=== PATIENT | female | born 1960 | race Hispanic/Latino ===

== ENCOUNTER 2019-05-29 23:47 | Emergency (ER) | payer SELFPAY ==
[2019-05-30 00:32] LABS: #Eosinphils 1.3 thou/uL (0.0-0.7); #Monocytes 0.9 thou/uL (0.11-0.59); #Neutrophils 4.4 thou/uL (1.40-6.50); %Basophils 0.5 % (0.0-1.0); %Eosinophils 14.8 % (0.0-10.0); %Lymphocytes 23.8 % (21.0-51.0); %Monocytes 9.9 % (0.0-10.0); Hemoglobin 14.7 g/dL (12.0-16.0); Mean Corpuscular HGB CONC 33.6 g/dL (32.0-36.0); Mean Corpuscular Hemoglobin 28.9 pg (27.0-31.0); Mean Corpuscular Volume 85.9 fL (78.0-98.0); Mean Platelet Volume 6.9 fL (7.4-10.4); Platelet Count 384 thou/uL (130-400); RBC Distribution Width 13.2 % (11.5-14.5); Red Blood Cell (RBC) Count 5.08 mill/uL (4.20-5.40); White Blood Cell (WBC) Count 8.6 thou/uL (4.8-10.8)
[2019-05-30 00:40] LABS: Bilirubin Negative (Negative); Blood, Urine Negative (Negative); Clarity Clear (Clear); Glucose, Urine (Dipstick) Normal (Negative); Leukocyte 500 Leu/uL (Negative); Nitrite Negative (Negative); Protein, Urine (Dipstick) Negative (Neg-Trace); RBC/HPF 0-3 HPF (0-3); Squamous Epithelial 0-3 HPF (0-3); Urobilinogen Normal mg/dL (Less than 2); WBC/HPF 21-50 HPF (0-3)
[2019-05-30 00:47] LABS: Transitional Epithelial 0-3 HPF (None Seen)
[2019-05-30 00:48] LABS: Bacteria/HPF 1+ HPF (None Seen)
[2019-05-30 00:49] LABS: Pregnancy Test - Urine (BHCG) Negative (Negative); Pregu Control Background? CLEAR/WHITE (CLR/WHITE); Pregu Control Bar Appear? YES (CONTROL BAR); Specific Gravity 1.002 (1.002-1.036)
[2019-05-30 00:53] LABS: ALT (SGPT) 21 U/L (8-55); AST (SGOT) 21 U/L (5-34); Albumin 4.3 g/dL (3.5-5.0); Alkaline Phosphatase 95 U/L (40-150); Anion Gap 13 mmol/L (10-20); BUN (Urea Nitrogen) 7 mg/dL (9.8-20.1); Bilirubin, Total 0.3 mg/dL (0.2-1.2); Calc. Creatinine Clearance 0 mL/min (70-130); Calcium 9.6 mg/dL (7.8-10.44); Carbon Dioxide 26 mmol/L (22-29); Chloride 101 mmol/L (98-107); Estimated GFR-MDRD 66; Globulin 2.9 g/dL (2.4-3.5); Glucose 89 mg/dL (70-105); Lipase 21 U/L (8-78); Potassium 3.6 mmol/L (3.5-5.1); Protein, Total 7.2 g/dL (6.0-8.3); Sodium 136 mmol/L (136-145)
[2019-05-30] MEDS ORDERED: Ketorolac Tromethamine 30 MG/ML VIAL ONE (01:03)
--- NOTE | 2019-05-30 08:49 | ULT ---
PRELIMINARY REPORT/[facility]/EMERGENCY AFTER HOURS PROCEDURE: EXAM: US Abdomen Limited, Right Upper Quadrant EXAM DATE/TIME: 05/30/2019 2:00 AM CLINICAL HISTORY: 58 years old, female; Other: Upper abd pain TECHNIQUE: Imaging protocol: Real-time ultrasound of the abdomen with image documentation. Examination was focus ed on the right upper quadrant. COMPARISON: No relevant prior studies available. FINDINGS: Liver: 1.4 cm hyperechoic focus in the right popliteal liver is indeterminate, potentially a hemangio ma. Gallbladder: Gallbladder is distended but otherwise unremarkable with no wall thickening or perichole cystic fluid. Sonographic Mosqueda's sign negative. Common bile duct: Normal. No stones. No dilation. Pancreas: Visualized pancreas is unremarkable. Right kidney: Normal. No mass. No hydronephrosis. IMPRESSION: 1.4 cm hyperechoic focus in the right popliteal liver is indeterminate, potentially a hemangioma. Thank you for allowing us to participate in the care of your patient. Dictated and Authenticated by: Cole Mane MD 05/30/2019 2:32 AM Central Time ([place] & [place]) FINAL REPORT EMERGENCY AFTER HOURS RIGHT UPPER QUADRANT ULTRASOUND: Date: 05/30/19 Time: 0204 hours FINDINGS/IMPRESSION: 1.4 cm diameter hyperechoic focus in the liver, potentially hemangioma. No evidence of gallstones. No common duct dilatation. Report in agreement with preliminary report given on-call by Frank. POS: MÓNICA
== END 2019-05-30 03:07 | disposition home or self-care (01) ==
LOC: ERS 23:47
DX: R10.11 Right upper quadrant pain (principal); J45.909 Unspecified asthma, uncomplicated; E03.9 Hypothyroidism, unspecified; Z79.899 Other long term (current) drug therapy
CPT/HCPCS: 36415; 76705; 80053; 81003; 81015; 81025; 83690; 85025; 96372; J1885

== ENCOUNTER 2020-03-11 14:35 | Observation (INO) | payer SELFPAY ==
--- NOTE | 2020-03-11 14:58 | CT ---
Exam: Head CT without contrast HISTORY: Right-sided weakness. Altered mental status. Headache. Last seen normal one hour ago. COMPARISON: none FINDINGS: Hemorrhage: No intraparenchymal hemorrhage or extra-axial hematoma. Brain parenchyma: Cortical abdul-white matter differentiation is preserved. No mass effect or midline shift. Basilar cisterns are patent. Ventricular system: Ventricles and sulci are patent and symmetric. Calvarium: Intact. Sinuses and mastoid air cells: Mild mucosal thickening of the ethmoid air cells and lateral maxillary sinuses. IMPRESSION: 1. No acute intracranial process 2. Results of study discussed with Dr. Galicia 03/11/2020 2:55 PM Code CR
[2020-03-11 15:08] LABS: #Basophils 0.1 thou/uL (0.0-0.2); #Eosinphils 0.7 thou/uL (0.0-0.7); #Lymphocytes 1.9 thou/uL (1.20-3.40); #Monocytes 0.6 thou/uL (0.11-0.59); #Neutrophils 3.6 thou/uL (1.40-6.50); %Basophils 1.5 % (0.0-1.0); %Eosinophils 10.5 % (0.0-10.0); %Lymphocytes 26.9 % (21.0-51.0); %Monocytes 8.3 % (0.0-10.0); %Neutrophils 52.8 % (42.0-75.0); Hemoglobin 13.6 g/dL (12.0-16.0); Mean Corpuscular HGB CONC 34.8 g/dL (32.0-36.0); Mean Corpuscular Hemoglobin 30.3 pg (27.0-31.0); Mean Platelet Volume 8.2 fL (7.4-10.4); Platelet Count 323 thou/uL (130-400); RBC Distribution Width 13.1 % (11.5-14.5); White Blood Cell (WBC) Count 6.9 thou/uL (4.8-10.8)
[2020-03-11 15:12] LABS: PTT 32.1 sec (22.9-36.1); Prothrombin Time 13.3 sec (12.0-14.7)
[2020-03-11 15:21] LABS: ALT (SGPT) 20 U/L (8-55); AST (SGOT) 26 U/L (5-34); Albumin 4.2 g/dL (3.5-5.0); Alkaline Phosphatase 80 U/L (40-110); Anion Gap 12 mmol/L (10-20); BUN (Urea Nitrogen) 10 mg/dL (9.8-20.1); Bilirubin, Total 0.4 mg/dL (0.2-1.2); CK (CPK) 87 U/L (29-168); Calc. Creatinine Clearance 0 mL/min (70-130); Calcium 9.5 mg/dL (7.8-10.44); Carbon Dioxide 26 mmol/L (22-29); Chloride 105 mmol/L (98-107); Estimated GFR-MDRD 55; Globulin 3.2 g/dL (2.4-3.5); Glucose 124 mg/dL (70-105); Potassium 3.8 mmol/L (3.5-5.1); Protein, Total 7.4 g/dL (6.0-8.3); Sodium 139 mmol/L (136-145)
--- NOTE | 2020-03-11 15:22 | CT ---
EXAM: CT ANGIOGRAM OF THE HEAD AND NECK INDICATION: Stroke COMPARISON: None TECHNIQUE: CT angiogram of the head and neck are performed in the axial plane. Three-dimensional refo rmatted images are submitted for interpretation. FINDINGS: CTA OF THE HEAD WITH AND WITHOUT CONTRAST: POSTCONTRAST CT OF BRAIN: Pathologic enhancement: No pathologic enhancement the brain. Postcontrast soft tissue neck CT: Sinuses: Mild mucosal thickening of the paranasal sinuses Aerodigestive tract: Patent. No mucosal abnormality. Limited evaluation of the oral cavity due to den valery amalgam artifact. Midline fatty raphae of the tongue does appear to be preserved. Orbits: Bilateral ocular lenses are appropriately located. Both globes are intact. Retrobulbar fat is preserved. Symmetric attenuation the optic nerves and ocular rectus muscles. Salivary glands:Symmetric attenuation of the parotid and submandibular glands Thyroid gland: Appropriate attenuation Lymph nodes: No evidence of lymphadenopathy by size criteria. Paraspinal muscles: Symmetric attenuation of the sternocleidomastoid muscles. Appropriate attenuation of the paraspinal muscles. Cervical spine:Vertebral body height is maintained. No fracture. No significant central canal stenosi s or significant neural foraminal narrowing. Limited evaluation by technique. Upper mediastinum and lung apices: Chronic changes. No acute abnormality. CTA OF THE NECK WITH CONTRAST: Aorta: Appropriate enhancement and luminal diameter Right carotid artery: Common origin (compatible with a bovine arch). Appropriate enhancement and agustín nal diameter. No significant stenosis based upon NASCET criteria. Left carotid: Appropriate enhancement and luminal diameter. No significant stenosis based upon NASCET criteria Subclavian arteries:Appropriate enhancement and luminal diameter Vertebral arteries:Appropriate enhancement and luminal diameter. Right vertebral artery is dominant. CTA OF THE BRAIN: Intracranial internal carotid arteries:Appropriate enhancement and luminal diameter Anterior circulation: Appropriate enhancement and luminal diameter of the A1 segments, proximal A2 se gments, M1 segments and proximal MCA branches. Intracranial vertebral arteries: Appropriate enhancement and luminal diameter. Bilateral PICA artery origins have appropriate enhancement and luminal diameter Posterior circulation: Appropriate enhancement and luminal diameter the basilar artery and bilateral P1 segments IMPRESSION: 1. No hemodynamically significant stenosis, occlusion or aneurysmal formation. 2. Results study discussed with Dr. Galicia 03/11/2020 3:21 PM Code CR Transcribed Date/Time: 03/11/2020 4:46 PM
--- NOTE | 2020-03-11 16:59 | PDOC.FPRHP ---
- History of Present Illness Chief Complaint: AMS, Right sided weakness History of Present Illness: Patient is a 59 yo english speaking F with PMH of asthma, GERD, hypothyroidism who presents for headache, AMS, difficulty with speech, and right sided weakness that started this morning. present, states her symptoms started at 2 PM. Says she became suddenly weak and he had to help her to the ground, had state of confusion for about 10 minutes with minimal responsiveness (was saying some words) and he decided to call 911. When paramedics arrived she was still confused for about 30 minutes. ED physician reported that upon arrival the patient had weakness in her right arm and leg. Patient does not remember this episode and her symptoms have resolved at the time of my evaluation. Patient denies any weakness and is appropriately answering questions. Patient reports constant right eye pain for past 12 days and muscle pain in posterior neck near left base of neck which started 4 days ago. Patient was seen at [facility] on March 08, had head CT completed there and was sent home with medications for migraine, including Fiorecet & Flexeril. Also given Keflex for eye infection. Says Fiorecet did not help. *H&P was obtained with assistance of iPad video architect marine ED Course: In ED: CT head negative, CTA head and neck wnl. Patient was given 325 mg ASA. - Allergies/Adverse Reactions Allergies Allergy/AdvReac Type Severity Reaction Status Date / Time shellfish derived Allergy Rash Verified 03/11/20 20:48 - Home Medications Comments: Home medications: Breo Ellipta 100-25 mcg/inh 1 puff daily' omeprazole 40 mg qd Albuterol q4h PRN neb levothyroxine 75 mcg qd Duoneb nebulizer 4-6 hr - History PMHx: hypothyroidism, asthma, gastric ulcer PSHx: left ovary removed, CSx1 FHx: sister had breast cancer @ age 70 yrs Social: denied tobacco, alcohol, or drug use Denies allergies - Review of Systems General: denies: fever/chills, weight/appetite/sleep changes, fatigue Eyes: reports: eye pain. denies: vision changes ENT: denies: nasal congestion Respiratory: denies: cough, congestion, shortness of breath Cardiovascular: denies: chest pain, palpitation, edema Gastrointestinal: denies: nausea, vomiting, diarrhea, abdominal pain Skin: denies: rashes, lesions, jaundice, itching Musculoskeletal: denies: pain, tenderness, swelling Neurological: reports: weakness. denies: numbness, syncope, seizure - Vital signs 148/94 Resp: 14 O2 sat: 99 on Room Air Pulse: 73 Temp: 98.3 Pain: 5 - Physical Exam Constitutional: NAD, awake, alert and oriented, well developed HEENT: normocephalic and atraumatic, PERRLA, EOMI, conjunctiva clear, grossly normal vision, MMM Neck: supple, FROM, trachea midline, no JVD, no thyromegaly Chest: no-tender to palpation, no lesions Heart: RRR, normal S1/S2, no murmurs/rubs/gallops, pulses present, no edema Lungs: CTAB, no respiratory distress, good air movement, no wheezing Abdomen: soft, non-tender, bowel sounds present Musculoskeletal: normal structure, normal tone, ROM grossly normal Neurological: no focal deficit, CN II-XII intact, normal sensation -Neurological: able to perform heel to simon test bilaterally Skin: no rash/lesions, good turgor, no jaundice Heme/Lymphatic: no unusual bruising or bleeding Psychiatric: normal mood and affect, intact recent and remote memory FMR H&P: Results - Labs Result Diagrams: 03/11/20 14:56 03/11/20 14:56 Lab results: WBC 6.9 thou/uL (4.8-10.8) 03/11/20 14:56 Hgb 13.6 g/dL (12.0-16.0) 03/11/20 14:56 Hct 39.1 % (36.0-47.0) 03/11/20 14:56 MCV 87.0 fL (78.0-98.0) 03/11/20 14:56 Plt Count 323 thou/uL (130-400) 03/11/20 14:56 Neutrophils % 52.8 % (42.0-75.0) 03/11/20 14:56 Sodium 139 mmol/L (136-145) 03/11/20 14:56 Potassium 3.8 mmol/L (3.5-5.1) 03/11/20 14:56 Chloride 105 mmol/L (98-107) 03/11/20 14:56 Carbon Dioxide 26 mmol/L (22-29) 03/11/20 14:56 BUN 10 mg/dL (9.8-20.1) 03/11/20 14:56 Creatinine 1.03 mg/dL (0.6-1.1) 03/11/20 14:56 Glucose 124 mg/dL (70-105) H 03/11/20 14:56 Calcium 9.5 mg/dL (7.8-10.44) 03/11/20 14:56 Total Bilirubin 0.4 mg/dL (0.2-1.2) 03/11/20 14:56 AST 26 U/L (5-34) 03/11/20 14:56 ALT 20 U/L (8-55) 03/11/20 14:56 Alkaline Phosphatase 80 U/L (40-110) 03/11/20 14:56 Creatine Kinase 87 U/L (29-168) 03/11/20 14:56 Serum Total Protein 7.4 g/dL (6.0-8.3) 03/11/20 14:56 Albumin 4.2 g/dL (3.5-5.0) 03/11/20 14:56 - EKG Interpretation EKG: NSR, P 70s - Radiology Interpretation CT scan - head Status: report reviewed by me (No acute intracranial process.) Other Status: report reviewed by me (CTA head: negative) FMR H&P: A/P - Problem List (1) Transient alteration of awareness Current Visit: Yes Status: Acute Code(s): R40.4 - TRANSIENT ALTERATION OF AWARENESS (2) Weakness of right lower extremity Current Visit: Yes Status: Acute Code(s): R29.898 - OTH SYMPTOMS AND SIGNS INVOLVING THE MUSCULOSKELETAL SYSTEM (3) Migraines Current Visit: Yes Status: Acute Code(s): G43.909 - MIGRAINE, UNSP, NOT INTRACTABLE, WITHOUT STATUS MIGRAINOSUS Qualifiers: Migraine type: without aura (4) Hypertension Current Visit: Yes Status: Acute Code(s): I10 - ESSENTIAL (PRIMARY) HYPERTENSION Qualifiers: Hypertension type: essential hypertension Qualified Code(s): I10 - Essential (primary) hypertension - Plan Patient is a 59 yo female who presents with complaint of AMS and right sided LE weakness earlier today: #Acute Encephalopathy, now resolved. R/O TIA/CVA #Right sided weakness, now resolved -rule out CVA vs TIA vs complex migraine vs other -order MRI -neuro checks q4h, vitals per unit -check TSH, FLP, A1C, Mag, Phos #Migraine Headache -reports headache with pain behind right eye -tried Fiorecet without relief -will follow migraine headache MABLE protocol--start with Reglan x 1, Toradol x 1 -will hold off on giving Benadryl at this time given earlier hx of altered mentation #Hypothyroidism -continue home med: Levothyroxine #Asthma -continue home meds: Breo-ellipta, Albuterol, Duoneb #Hypertension -continue to monitor, consider starting med if BP remains elevated #Hx of Stomach Ulcer -continue home meds: Omeprazole -caution with giving NSAIDs this admission -no current GI Complaints, ulcer was several months ago per patient Diet: HH VTE: SCDs GI PPX: Omeprazole, Tums Code status: FULL PCP: Osiel Patiño at [facility] Dispo: Stable, admit to obs on stroke unit for TIA/CVA rule out. Check MRI and additional labs. Anticipate LOS <48 hrs. FMR H&P: Upper Level - Pertinent history 59 yo F w/ PMH of asthma, hypothyroidism presents for AMS and right sided weakness that started around 2:30 PM today. Patient's presents with her , they are somewhat poor historians and give an inconsistent history. reports that patient collapsed into a chair in the kitchen while she was cooking , was not responding for 10 minutes, then was confused for 30 minutes. Previously he denied LOC. Denies that she hit her head. They called EMS. She reports she has had some right sided weakness in her arm and leg coinciding with a left occiptal headache that has been going on for three days: she was seen at [facility] for this 3 days ago, had a negative CT, and was sent home with fioricet for this. She also reports a conjunctivitis for which she was given keflex. Denies photophobia, phonophobia, or nausea. reports her mentation currently is almost back to normal. - Pertinent findings General: english speaking female, in no acute distress. HEENT: NC, AT. No point tenderness to Left occiput Lungs: BCTA Cardiac: RRR, no murmur Abdomen: soft, inconsistent RUQ tenderness (pt reports has been there for years) Neuro: CN 2-12 grossly intact. Speech normal, no facial droop. Strength 5/5 in BUE and BLE. No numbness. Intact patellar reflexes. - Plan Date/Time: 03/11/201655 I, Tiffanie Patiño, have evaluated this patient and agree with findings/plan as outlined by learning and development intern resident. Pertinent changes/additions are listed here. Acute encephalopathy, resolved CVA r/o vs TIA Consider possible complex migraine -NIH 10-7 in the ED, symptoms resolved upon my exam -Was reported to have confusion, aphasia, Rt facial droop, right arm and leg weakness -CT and CTA head/neck normal; EKG NSR; s/p 325 mg ASA -Pt denies hx of migraines, but was sent home from [facility] with Fioricet. Symptoms seem to correlate with headache per her history. Denies nausea/photophobia/ phonophobia. -MRI in AM -TSH, A1C, UA reflex culture, AM FLP -Admit to tele obs Headache, consider migraine -Toradol andd reglan -Will not continue toradol, as pt reports history of gastric ulcer Asthma -Continue home meds Levothyroxine -Check TSH Diet: NPO for speech DVT ppx: lovenox PCP: DENNIS Kraft Dispo: Admiit to tele obs for CVA r/o Addendum - Attending - Attending Attestation Date/Time: 03/11/202119 I personally evaluated the patient and discussed the management with the team. I agree with the History, Examination, Assessment and Plan documented above with any addition or exceptions noted below.
[2020-03-11] MEDS ORDERED: Aspirin Chewable 81 MG TAB ONE ×2 (17:52→19:20)
[2020-03-11] MEDS ORDERED: Aspirin 325 MG TAB ONE (17:56)
[2020-03-11] MEDS ORDERED: Calcium Carbonate 500 MG ChewTAB PO PRN (18:20)
[2020-03-11] MEDS ORDERED: Senokot S 8.6-50 MG TAB PO PRN (18:20)
[2020-03-11] MEDS ORDERED: Acetaminophen 325 MG TAB PO PRN (18:20)
[2020-03-11] MEDS ORDERED: Ketorolac Tromethamine 60 MG/2 ML VIAL IM SCH (18:45)
[2020-03-11] MEDS ORDERED: Metoclopramide HCl 10 MG/2 ML VIAL IVP SCH (18:45)
[2020-03-11 18:53] LABS: Hemoglobin A1c 5.4 % (4.0-6.0)
[2020-03-11 18:57] LABS: Magnesium 2.1 mg/dL (1.6-2.6); Phosphorus 2.7 mg/dL (2.3-4.7)
[2020-03-11] MEDS ORDERED: Ondansetron PF 4 MG/2 ML Vial IVP PRN (20:33)
[2020-03-11] MEDS ORDERED: Ondansetron ODT 4 MG TAB SL PRN (20:33)
[2020-03-11 20:45] VITALS: BMI 26.0
[2020-03-11] MEDS ORDERED: Ketorolac Tromethamine 30 MG/ML VIAL IM SCH (21:00)
[2020-03-12 04:12] LABS: Bacteria/HPF None Seen HPF (None Seen); Bilirubin Negative (Negative); Blood, Urine Trace (Negative); Clarity Clear (Clear); Glucose, Urine (Dipstick) Normal (Negative); Leukocyte 500 Leu/uL (Negative); Nitrite Negative (Negative); Protein, Urine (Dipstick) 10 mg/dL (Neg-Trace); Squamous Epithelial 0-3 HPF (0-3); Urobilinogen Normal mg/dL (Less than 2); WBC/HPF Greater than 50 HPF (0-3)
[2020-03-12 04:15] LABS: Urine Culture Reflex Yes Yes
[2020-03-12 04:56] LABS: #Basophils 0.1 thou/uL (0.0-0.2); #Eosinphils 0.9 thou/uL (0.0-0.7); #Lymphocytes 1.3 thou/uL (1.20-3.40); #Monocytes 0.9 thou/uL (0.11-0.59); #Neutrophils 4.4 thou/uL (1.40-6.50); %Basophils 1.1 % (0.0-1.0); %Eosinophils 11.6 % (0.0-10.0); %Lymphocytes 17.1 % (21.0-51.0); %Monocytes 11.4 % (0.0-10.0); %Neutrophils 58.7 % (42.0-75.0); Hemoglobin 13.1 g/dL (12.0-16.0); Mean Corpuscular HGB CONC 32.7 g/dL (32.0-36.0); Mean Corpuscular Hemoglobin 28.9 pg (27.0-31.0); Mean Corpuscular Volume 88.4 fL (78.0-98.0); Mean Platelet Volume 8.1 fL (7.4-10.4); Platelet Count 322 thou/uL (130-400); RBC Distribution Width 13.2 % (11.5-14.5); Red Blood Cell (RBC) Count 4.54 mill/uL (4.20-5.40); White Blood Cell (WBC) Count 7.5 thou/uL (4.8-10.8)
[2020-03-12 05:29] LABS: ALT (SGPT) 18 U/L (8-55); AST (SGOT) 23 U/L (5-34); Albumin 3.7 g/dL (3.5-5.0); Alkaline Phosphatase 74 U/L (40-110); Anion Gap 12 mmol/L (10-20); BUN (Urea Nitrogen) 15 mg/dL (9.8-20.1); Bilirubin, Total 0.3 mg/dL (0.2-1.2); Calc. Creatinine Clearance 71 mL/min (70-130); Calcium 9.2 mg/dL (7.8-10.44); Carbon Dioxide 22 mmol/L (22-29); Chloride 109 mmol/L (98-107); Cholesterol 194 mg/dl (< 200 Desired); Estimated GFR-MDRD 67; Globulin 2.6 g/dL (2.4-3.5); Glucose 96 mg/dL (70-105); HDL Cholesterol 48 mg/dL (>60 Neg Risk); LDL Cholesterol, Calculated 120 mg/dL; Potassium 3.6 mmol/L (3.5-5.1); Protein, Total 6.3 g/dL (6.0-8.3); Sodium 139 mmol/L (136-145); Triglycerides 130 mg/dL (Less than 150)
[2020-03-12] MEDS ORDERED: Cyclobenzaprine 10 MG TAB PO PRN ×2 (06:57→07:15)
[2020-03-12] MEDS ORDERED: Fioricet 325/50/40 mg Tablet PO PRN (06:57)
--- NOTE | 2020-03-12 08:04 | PDOC.FM ---
- Subjective Subjective: Patient feeling better this morning. States the medication (Reglan, Toradol) that she was given yesterday has improved her neck pain and headache. Denies an pain in those regions this morning. Denies any chest pain, SOB, abdominal pain, nausea. Patient also says that she no longer feels weak. - Objective MAR Reviewed: Yes Vital Signs & Weight: Vital Signs (12 hours) Temp Pulse Resp BP Pulse Ox 03/12/20 03:46 98.0 F 78 18 108/70 96 03/11/20 23:55 98.7 F 78 18 112/62 96 Weight Weight 64.682 kg I&O: 03/11/20 03/12/20 03/13/20 06:59 06:59 06:59 Intake Total 120 Balance 120 Result Diagrams: 03/12/20 04:09 03/12/20 04:09 Phys Exam - Physical Examination Constitutional: NAD HEENT: moist MMs, sclera anicteric Neck: no JVD, supple, full ROM no TTP posteriorly Respiratory: no wheezing, clear to auscultation bilateral Cardiovascular: RRR, no significant murmur Gastrointestinal: soft, non-tender, no distention, positive bowel sounds Musculoskeletal: no edema, pulses present Neurological: normal sensation, moves all 4 limbs Psychiatric: normal affect, A&O x 3 Skin: no rash, normal turgor Dx/Plan (1) Transient alteration of awareness Code(s): R40.4 - TRANSIENT ALTERATION OF AWARENESS Status: Acute (2) Weakness of right lower extremity Code(s): R29.898 - OTH SYMPTOMS AND SIGNS INVOLVING THE MUSCULOSKELETAL SYSTEM Status: Acute (3) Migraines Code(s): G43.909 - MIGRAINE, UNSP, NOT INTRACTABLE, WITHOUT STATUS MIGRAINOSUS Status: Acute Qualifiers: Migraine type: without aura (4) Hypertension Code(s): I10 - ESSENTIAL (PRIMARY) HYPERTENSION Status: Acute Qualifiers: Hypertension type: essential hypertension Qualified Code(s): I10 - Essential (primary) hypertension - Plan Plan: Patient is a 59 yo female who presents with complaint of AMS and right sided LE weakness earlier today: #Acute Encephalopathy, now resolved. R/O TIA/CVA #Right sided weakness, now resolved -rule out CVA vs TIA vs complex migraine vs other--suspect complex migraine -MRI pending -neuro checks q4h, vitals per unit -FLP: TChol 194, LDL 120, HDL 48 -A1C 5.4% -Mag 2.1, Phos 2.7 #Migraine Headache -reports headache with pain behind right eye--resolved this morning -tried Fiorecet without relief -will follow migraine headache MABLE protocol -given Reglan x 1, Toradol x 1 with pain resolving shortly after -will hold off on giving Benadryl at this time given earlier hx of altered mentation #Hypothyroidism -continue home med: Levothyroxine -TSH 6.3, T4 0.88 #Asthma -continue home meds: Breo-ellipta, Albuterol, Duoneb #Hypertension -continue to monitor, consider starting med if BP remains elevated #Hx of Stomach Ulcer -continue home meds: Omeprazole -caution with giving NSAIDs this admission -no current GI Complaints, ulcer was several months ago per patient Diet: HH VTE: SCDs GI PPX: Omeprazole, Tums Code status: FULL PCP: Osiel Patiño at [facility] Dispo: Stable, admit to obs on stroke unit for TIA/CVA rule out. Check MRI and additional labs. Anticipate discharge in next 24-48 hrs. Addendum - Attending - Attending Attestation Date/Time: 03/12/20 1403 I personally evaluated the patient and discussed the management with Dr. Stewart. I agree with the History, Examination, Assessment and Plan documented above with any addition or exceptions noted below. Patient overall stable. Reports being back to baseline. Here for CVA r/o but suspect this is more related to complex migraine per outpatient diagnosis. MRI pending today, likely dc later today if negative.
[2020-03-12] MEDS ORDERED: Levothyroxine Sodium 75 MCG TAB PO SCH (09:00)
[2020-03-12] MEDS ORDERED: Aspirin 325 mg Enteric Coated Tablet PO SCH (09:00)
[2020-03-12] MEDS ORDERED: Non-Formulary Item 1 EACH (Omeprazole [Omeprazole] 40 MG) PO SCH (09:00)
--- NOTE | 2020-03-12 11:28 | MRI ---
Exam: Brain MRI without contrast HISTORY: Left-sided arm weakness. Stroke versus TIA. COMPARISON: None FINDINGS: Calvarial marrow signal intensity: Appropriate T1 signal Gradient echo sequence: No hemorrhage Brain parenchyma: No mass, mass effect or midline shift. Brain volume, age-appropriate. Cortical abdul-white matter differentiation: Preserved Restricted diffusion: Central arterial flow voids are maintained. Absent restricted diffusion White matter signal intensities:Minimal scattered T2 and FLAIR white matter hyperintensities are nons pecific Sinuses: Adequate aeration of the paranasal sinuses and mastoid air cells. IMPRESSION: Absent restricted diffusion. No acute infarct.
[2020-03-12] MEDS ORDERED: Non-Formulary Item 1 EACH (Cephalexin [Keflex] 500 MG) PO SCH (12:00)
[2020-03-12] MEDS ORDERED: Cephalexin 250 MG CAP PO SCH (12:00)
[2020-03-12 15:49] VITALS: BP 116/77; TEMP 97.9
--- NOTE | 2020-03-12 19:55 | DIS ---
DATE OF ADMISSION: 03/11/2020 DATE OF DISCHARGE: 03/12/2020 PRIMARY CARE PHYSICIAN: Scar Patiño MD RESIDENT: Lori Stewart DO ADMITTING ATTENDING: Natanael Jacobsen MD DISCHARGE ATTENDING: Michael Serrano MD CONSULTS: None. PROCEDURES: 1. Brain CT on March 11, 2020: No acute intracranial process. 2. Brain CTA on March 11, 2020: No hemodynamically significant stenosis, occlusion, or aneurysmal formation. 3. Brain MRI on March 12, 2020: No acute infarct. PRIMARY DIAGNOSES: 1. Acute encephalopathy, now resolved, likely due to complex migraine. 2. Cerebrovascular accident ruled out. SECONDARY DIAGNOSES: 1. Migraine headaches. 2. Hypothyroidism. 3. Asthma. 4. Hypertension. 5. History of stomach ulcer. DISCHARGE MEDICATIONS: 1. Flexeril 10 mg p.o. q.8 hours p.r.n. 2. Fioricet 1 tablet p.o. q.6 hours p.r.n. 3. Keflex 500 mg p.o. q.6 hours. 4. Famotidine 40 mg p.o. at bedtime. 5. Omeprazole 40 mg p.o. b.i.d. 6. Levothyroxine sodium 75 mcg p.o. daily. 7. Toradol 10 mg p.o. q.6 hours p.r.n. DISCONTINUED MEDICATIONS: None. HISTORY OF PRESENT ILLNESS/HOSPITAL COURSE: The patient is a 59-year-old Czech-speaking female with past medical history of asthma, GERD, and hypothyroidism, who presented to the [facility] Emergency Department on March 11, 2020 for headache, altered mental status, difficulty with speech, and right-sided weakness that began earlier in the morning. Has been who witnessed the event, stated her symptoms started approximately 2 hours prior to arrival. states that the patient became suddenly weak and he had a helper to the ground. She had a state of confusion for about 10 minutes and was saying some minimal words when he decided to call 911. When paramedics arrived, the patient remained confused for about 30 minutes. The ED physician reported that upon arrival, the patient had weakness in the right arm and leg. The patient's symptoms had resolved at the time of my evaluation. She was denying any weakness and was appropriately answering questions. The patient reports that she has had constant right eye pain for the past 12 days and muscle pain in the posterior neck near the left base of the neck, which started four days ago. The patient was seen at [facility] on March 08, had head CT completed there, which was negative and was sent home with medications for migraine including Fioricet and Flexeril. The patient was also given Keflex, which she reports was for an eye infection. The patient states Fioricet did not help her pain. In the Emergency Department, the patient had a CT head which was negative, CTA head and neck negative, and was given 325 mg aspirin. The patient was admitted to observation on the stroke unit for a TIA versus CVA rule out. The patient was given 1 dose of IV Toradol and IV Reglan. Her pain resolved shortly after. The patient's lab work was unremarkable. She had an MRI completed on the morning of March 12, 2020, which was essentially normal. The patient's clinical status was overall greatly improved and the patient was feeling much better. The patient's symptoms were thought to be due to a complex migraine. The patient was stable for discharge in the afternoon of March 12, 2020. DISPOSITION: Stable. DISCHARGE INSTRUCTIONS: 1. Location: Home. 2. Diet: Heart healthy. 3. Activity: As tolerated. 4. Follow up with PCP Dr. Scar Patiño at [facility] in 2 to 3 days. Job ID: [id number]
[2020-03-12] MEDS ORDERED: Non-Formulary Item 1 EACH (Famotidine [Famotidine] 40 MG) PO SCH (21:00)
[2020-03-12] MEDS ORDERED: Famotidine 20 MG TAB PO SCH (21:00)
--- NOTE | 2020-03-18 13:02 | EKG ---
Test Reason : Blood Pressure : / mmHG Vent. Rate : 073 BPM Atrial Rate : 073 BPM P-R Int : 156 ms QRS Dur : 080 ms QT Int : 384 ms P-R-T Axes : 058 013 022 degrees QTc Int : 423 ms Normal sinus rhythm Normal ECG Confirmed by FLEX TOMPKINS DO ([id number]), editor at large ARSLAN HALLMAN ([id number]) on 03/18/2020 1:01:54 PM Referred By: Confirmed By:FLEX TOMPKINS DO
== END 2020-03-12 17:24 | disposition home or self-care (01) ==
LOC: ERS 14:35 → 2SE 18:24
PROVIDERS: ADMIT Emergency Medicine; ATTEND Emergency Medicine
DX: G93.40 Encephalopathy, unspecified (principal); G43.909 Migraine, unspecified, not intractable, without status migrainosus; E03.9 Hypothyroidism, unspecified; J45.909 Unspecified asthma, uncomplicated; I10 Essential (primary) hypertension; K21.9 Gastro-esophageal reflux disease without esophagitis; Z79.899 Other long term (current) drug therapy; Z91.013 Allergy to seafood
CPT/HCPCS: 36415; 70450; 70496; 70498; 70551; 80053; 80061; 81001; 82550; 83036; 83735; 84100; 84439; 84443; 84484; 85025; 85610; 85730; 87086; 93005; 96372; 96374; G0378; J1885; J2765

== ENCOUNTER 2024-05-28 01:01 | Emergency (ER) | payer SELFPAY ==
[2024-05-28] MEDS ORDERED: Naproxen 500 MG TAB ONE (01:35)
== END 2024-05-28 02:05 | disposition left against medical advice (07) ==
LOC: ERS 01:01
DX: T80.89XA Other complications following infusion, transfusion and therapeutic injection, initial encounter (principal)
CPT/HCPCS: 99282

== ENCOUNTER 2025-06-04 20:33 | Emergency (ER) | payer SELFPAY ==
[2025-06-04 21:35] LABS: #Basophils 0.07 10x3/uL (0.0-0.2); #Eosinophils 0.39 10x3/uL (0.0-0.7); #Monocytes 1.03 10x3/uL (0.11-0.59); #Neutrophils 9.38 10x3/uL (1.40-6.50); %Basophils 0.6 % (0.0-1.0); %Eosinophils 3.2 % (0.0-10.0); %Lymphocytes 10.3 % (21.0-51.0); %Monocytes 8.5 % (0.0-10.0); %Neutrophils 77.2 % (42.0-75.0); Hematocrit 37.1 % (36.0-47.0); Hemoglobin 12.3 g/dL (12.0-16.0); Mean Corpuscular Hemoglobin 27.1 pg (27.0-31.0); Mean Corpuscular Volume 81.7 fL (78.0-98.0); Platelet Count 300 10x3/uL (130-400); Red Blood Cell (RBC) Count 4.54 mill/uL (4.20-5.40); White Blood Cell (WBC) Count 12.15 10x3/uL (4.8-10.8)
[2025-06-04 21:50] LABS: CAUTI Indications for Culture Acute Hematuria; Glucose, Urine (Dipstick) Normal (Negative); Leukocyte 500 Leu/uL (Negative); Protein, Urine (Dipstick) 10 mg/dL (Neg-Trace); Specific Gravity, Urine 1.003 (1.002-1.036); WBC/HPF 21-50 HPF (0-3)
[2025-06-04 21:51] LABS: Bacteria/HPF 1+ HPF (None Seen)
[2025-06-04 21:53] LABS: Urine Culture Reflex Yes Yes
[2025-06-04 21:57] LABS: ALT (SGPT) 16 U/L (Less than 34); AST (SGOT) 30 U/L (11-34); Albumin 4.3 g/dL (3.1-4.5); Alkaline Phosphatase 92 U/L (40-110); Anion Gap 12 mmol/L (10-20); BUN (Urea Nitrogen) 8 mg/dL (9.8-20.1); Bilirubin, Total 0.5 mg/dL (0.3-1.2); Calc. Creatinine Clearance 0 mL/min (70-130); Calcium 9.6 mg/dL (7.8-10.44); Carbon Dioxide 26 mmol/L (23-31); Chloride 101 mmol/L (98-107); Globulin 3.1 g/dL (2.4-3.5); Glucose 95 mg/dL (80-115); Potassium 3.3 mmol/L (3.5-5.1); Sodium 136 mmol/L (136-145)
[2025-06-04] MEDS ORDERED: HYDROcodone/Acetaminophen 5/325 mg Tablet ONE (22:16)
[2025-06-05] MEDS ORDERED: cefTRIAXone (ROCEPHIN) 1 GM VIAL ONE (00:13)
[2025-06-05] MEDS ORDERED: Lidocaine 1% PF 5 ML VIAL ONE (00:13)
== END 2025-06-05 00:42 | disposition home or self-care (01) ==
LOC: ERS 20:33
DX: N39.0 Urinary tract infection, site not specified (principal); R31.9 Hematuria, unspecified; K21.9 Gastro-esophageal reflux disease without esophagitis; E07.9 Disorder of thyroid, unspecified; Z79.899 Other long term (current) drug therapy
CPT/HCPCS: 74176; 80053; 81001; 85025; 87086; 96372; J0696